=== PATIENT | female | born 1970 | race American Indian/Alaskan Native ===

== ENCOUNTER 2017-12-20 09:34 | Outpatient (CLI) | payer BC ==
--- NOTE | 2017-12-21 12:07 | Magnetic Resonance Report ---
BILATERAL BREAST MRI WITHOUT AND WITH CONTRAST: 12/20/17 09:34:00 CLINICAL: Newly diagnosed DCIS of the left breast. COMPARISON:Recent [facility] mammograms. TECHNIQUE: Axial 1.0-mm T1 without, axial high resolution 2.0-mm T2 and axial 1.0-mm dynamic Vibrant high-resolution postcontrast T1 fat saturation sequences on a 1.5 Sheron magnet. The examination was performed with an 8 channel dedicated [employer] breast coil. Post processing with CAD and subtraction was performed on an [employer] workstation. 15.0 cc of Multihance was injected without incident for the contrast portion of the exam. Consent was obtained prior to the administration of the contrast. FINDINGS: Right: Minimal background parenchymal enhancement. No mass or suspicious enhancement. No suspicious right axillary or right internal mammary lymph nodes. Left: Minimal background parenchyma enhancement. A post stereotactic biopsy hematoma is identified at 6 o'clock approximately 7 cm from the nipple and this correlates with the site of the known cancer. No mass or suspicious enhancement. Mild benign enhancement at the periphery of the hematoma which measures 2.3 x 2.6 x 1.5 cm. No mass or suspicious enhancement of the left breast. No suspicious left axillary or left internal mammary lymph nodes. Several small left axillary lymph nodes with benign morphology. IMPRESSION: 1. Newly diagnosed left breast cancer had a left stereotactic biopsy site. 2. No mass or suspicious enhancement of either breast. 3. No suspicious lymph nodes. RIGHT BI-RADS 1 -- Negative LEFT BI-RADS 6 -- Known Cancer
== END 2017-12-20 09:35 | disposition home or self-care (01) ==
LOC: SPVIMAG 09:34
PROVIDERS: ATTEND Surgery
DX: C50.112 Malignant neoplasm of central portion of left female breast (principal); D64.9 Anemia, unspecified
CPT/HCPCS: A9577; C8908; 77059

== ENCOUNTER 2018-09-14 07:07 | Inpatient (IN) | payer BC ==
--- NOTE | 2018-09-12 10:46 | History and Physical Report ---
History of Present Illness Date of examination: 09/12/18 History of present illness: Patient has been reassessed/reevaluated. H&P has been reviewed. No interval changes. This is a 48 year old black female s/p mastectomy with ductal [id number] postive BRCA-1. Patient's oncologist recommends bilateral oophorectomy. Vital Signs: Patient Profile: 48 Years Old Female Height: 61.75 inches (156.85 cm) Weight: 152 pounds (69.09 kg) BMI: 28.02 BSA: 1.70 Past History : 2 Term Births: 1 Premature Births: 0 Living Children: 1 Para: 1 Mult. Births: 0 Prev : 0 Aborta: 1 Elect. Ab: 1 Spont. Ab: 0 Ectopics: 0 [employer] History Uterine Surgery (not C/S): negative Operations: Essure hernia repair lsc ovarian cystecomy RATH with bilateral salpingectomy (05/20/2016) Mastectomy and reconstruction (01/2018) Abdominal Surgery: abdominoplasty Hospitalizations: negative Anesthesia Complications: negative Abnormal PAP: negative Uterine Anomaly: positive fibroids LYDIA Exposure: negative Infertility: negative Infection History HIV Risk Eval: no Hx of STD: gonorrhea Current Allergies (reviewed today): No known allergies Past Medical History: Breast Cancer Past Surgical History: Essure hernia repair lsc ovarian cystecomy RATH with bilateral salpingectomy (05/20/2016) Mastectomy and reconstruction (01/2018) Abdominal Surgery: abdominoplasty Family History Summary: Lupus Heart dz Family History Breast Cancer-maunt(dx 60s) Social History: no tobacco/drugs/occ etoh Patient is single Risk Factors: Smoked Tobacco Use: Never smoker Smokeless Tobacco Use: Never Passive smoke exposure: no Drug use: no HIV high-risk behavior: no Alcohol use: yes Exercise: no Seatbelt use: 100 % Review of Systems General Complains of fatigue. Denies fever, chills, sweats, anorexia, weakness, malaise, weight loss and sleep disorder. Denies vaginal discharge, incontinence, dysuria, hematuria, urinary frequency, amenorrhea, menorrhagia, abnormal vaginal bleeding, pelvic pain, genital sores, decreased libido, painful periods, painful sex, urinary urgency, hot flashes, vaginal dryness, vaginal itching and vaginal odor. CV Denies chest pains, palpitations, syncope, dyspnea on exertion, orthopnea, PND and peripheral edema. Resp Denies cough, dyspnea at rest, excessive sputum, hemoptysis, wheezing and pleurisy. GI Denies nausea, vomiting, diarrhea, constipation, change in bowel habits, abdominal pain, melena, hematochezia, jaundice, gas/bloating, indigestion/heartburn, dysphagia and odynophagia. Breast Denies left breast lump, right breast lump, nipple discharge, bloody discharge from nipple, breast pain, abnormal mammogram and breast enlargement. Psych Denies depression, anxiety, irritability and mood swings. Past History Past Medical History: other (See HPI) Past Surgical History: Other (See HPI) Social history: single, full code (See HPI), other Family history: cancer, other (See HPI) Medications and Allergies Allergies Allergy/AdvReac Type Severity Reaction Status Date / Time No Known Allergies Allergy Verified 09/04/18 14:35 Home Medications Medication Instructions Recorded Confirmed Last Taken Type Tamoxifen Citrate 20 mg PO DAILY 09/04/18 09/04/18 Unknown History Review of Systems Constitutional: other (See HPI) Exam - Physical Exam Narrative exam: HEENT: normocephalic, no lesions or deformities Skin no ulcers, xanthomas Chest: respiratory effort normal, clear to auscultation CV: regular, normal S1-S2, no murmur, no rub, no gallop Abdomen: Robotic surgical scars present normal bowel sounds, soft, nontender, no HSM abdominoplasty scar Musculoskeletal: grossly normal ROM in joints, no joint tenderness or muscle weakness Neuro: no gross anomalities Extremities: normal alignment, no joint enlargement, crepitus, masses or tenderness; normal tone and strength [employer] Exams Vulva/Vagina: Well healed cuff Cervix: Surgically absent Uterus: Surgically absent Adnexae: no masses or tenderness Rectovaginal: Deferred Results - Labs CBC & Chem 7: 09/12/18 11:05 09/12/18 11:05 Assessment and Plan - Patient Problems (1) Ductal carcinoma in situ (DCIS) of breast Current Visit: No Status: Acute Qualifiers: Laterality: unspecified laterality Qualified Code(s): D05.10 - Intraductal carcinoma in situ of unspecified breast Plan to address problem: Patient's oncologist recommends bilateral oophorectomy. Consent reviewed and signed . The risks and alternatives for this surgery were reviewed with the patient. Discuss the risks of the surgery including infection, bleeding possibly heavy enough to require a blood transfusion, possible damage to bowel, bladder or ureter. Patient understands if her ovaries are removed she will become menopausal. Her questions were answered. Patient understands and desires to proceed . (2) BRCA positive Current Visit: No Status: Acute
[2018-09-12 11:15] LABS: Basophils % (Auto) 0.7 % (0.0-1.8); Eosinophils # (Auto) 0.2 K/mm3 (0.0-0.4); Eosinophils % (Auto) 3.3 % (0.0-4.3); Lymphocytes # (Auto) 1.5 K/mm3 (1.2-5.4); Lymphocytes % (Auto) 32.1 % (13.4-35.0); Mean Corpuscular HGB Conc 33 % (30-34); Mean Corpuscular Volume 94 fl (79-97); Monocytes # (Auto) 0.3 K/mm3 (0.0-0.8); Platelet Count 182 K/mm3 (140-440); Red Blood Count 4.15 M/mm3 (3.65-5.03); Red Cell Distribution Width 13.4 % (13.2-15.2)
--- NOTE | 2018-09-12 11:26 | Anesthesia Day of Surgery ---
Anesthesia Day of Surgery - Day of Surgery Patient Examined: Yes Patient H&P Reviewed: Yes Patient is NPO: Yes Beta Blockers: No Cardiac Clearance: No Pulmonary Clearance: No Kal's Test: N/A
--- NOTE | 2018-09-12 11:29 | Anesthesia Consultation ---
Anesthesia Consult and Med Hx Date of service: 09/12/18 - Airway Anesthetic Teeth Evaluation: Good (has permanent retainer) ROM Head & Neck: Adequate Mental/Hyoid Distance: Adequate Mallampati Class: Class II Intubation Access Assessment: Probably Good - Pulmonary Exam CTA: Yes - Cardiac Exam Cardiac Exam: RRR - Pre-Operative Health Status ASA Pre-Surgery Classification: ASA2 Proposed Anesthetic Plan: General - Pre-Anesthesia Comment Pre-Anesthesia Comments: no IV/BP on Left side (s/p mastectomy in 2018) significant PONV in 2018, will recommend for GA with TIVA - discussed scoplamine patch for prophylaxis but patient does not want (had last time and didn't feel like it worked) - Pulmonary Hx Smoking: No Hx Asthma: No COPD: No Hx Pneumonia: No - Cardiovascular System Hx Hypertension: No Hx Heart Murmur: Yes - Central Nervous System Hx Psychiatric Problems: No - Endocrine Hx End Stage Renal Disease: No - Hematic Hx Anemia: Yes - Other Systems Hx Alcohol Use: Yes (Occas) Hx Substance Use: No Hx Cancer: Yes - Additional Comments Anesthesia Medical History Comments: PONV - may need TIVA; avoid scop patch. No IV/BP on Left
[2018-09-12 11:30] LABS: BUN/Creatinine Ratio 17; Blood Urea Nitrogen 10 mg/dL (7-17); Calcium 9.5 mg/dL (8.4-10.2); Hemolysis Index 22
[~2018-09-14 07:07] MED LIST: LACTATED RINGERS 1,000 ML IV SCH; NEURONTIN PO NR; SUBLIMAZE IV PRN; VERSED IV NR
[2018-09-14] MEDS ORDERED: PHENERGAN PR PRN (07:51)
[2018-09-14] MEDS ORDERED: DILAUDID IV PRN (07:51)
--- NOTE | 2018-09-14 07:51 | Anesthesia Day of Surgery ---
Anesthesia Day of Surgery - Day of Surgery Patient Examined: Yes Patient H&P Reviewed: Yes Patient is NPO: Yes
[2018-09-14] MEDS ORDERED: ANCEF/STERILE WATER 2 GM/20 ML 2 GM/20 ML SYRINGE IV NR (08:00)
[2018-09-14] MEDS ORDERED: TRANSDERM-SCOP TD NR (08:00)
[2018-09-14] MEDS ORDERED: NACL 0.9% IR ONE (10:33)
[2018-09-14] MEDS ORDERED: DIPRIVAN 10 MG/ML IV ONE (10:35)
[2018-09-14] MEDS ORDERED: DILAUDID ONE (10:35)
[2018-09-14] MEDS ORDERED: XYLOCAINE MPF 2% ONE (10:37)
[2018-09-14] MEDS ORDERED: ZEMURON IV ONE (10:37)
[2018-09-14] MEDS ORDERED: DECADRON ONE (11:00)
[2018-09-14] MEDS ORDERED: BLOXIVERZ ONE (11:40)
[2018-09-14] MEDS ORDERED: TORADOL ONE (11:40)
[2018-09-14] MEDS ORDERED: ZOFRAN ONE (11:40)
[2018-09-14] MEDS ORDERED: ROBINUL ONE (11:40)
[2018-09-14] MEDS ORDERED: MARCAINE 0.5% INFILTRATI ONE ×2 (11:48→11:50)
[2018-09-14] MEDS ORDERED: LACTATED RINGERS 1,000 ML ONE (12:09)
--- NOTE | 2018-09-14 12:11 | Operative Report ---
Operative Report Operative Report: Date of procedure: 09/14/2018 Pre-operative diagnosis: Intraductal breast cancer BRCA positive desires bilater al oophorectomy Post-operative diagnosis: Same Procedure name(s): Minilaparotomy with bilateral oophorectomy Surgeon: Lew Mercedes MD Sugar Cane Planter: [] Anesthesia: General EBL: Minimal Complications: None Findings: Patient with troponin appearing right ovary was small ovarian cysts normal. Left ovary Specimen(s): Bilateral ovaries Procedure: Patient was taken to operating room where general anesthesia was induced without difficulty. Patient was placed in the supine position. Prep and drape in usual sterile fashion. A Pfannenstiel incision was made with a scalpel. This incision was taken on the fascia, the fascia was nicked in the midline and this incision was extended laterally with Jenkins scissors. The rectus muscles were from the overlying fascia both bluntly and sharply cephalically and caudally. The rectus muscles were sharply and bluntly. Peritoneum was grasped with 2 hemostats lifted high and incised with Metzenbaum scissors with no evidence of internal organ damage. This incision was extended vertically with care not to damage the bladder below. Patient was placed in Trendelenburg. Through this incision the right ovary was grasped with Elena clamp and was clearly identified. The ureter was identified to be out of operative site A Faviola clamp was placed across the ovarian vessels the specimen was then cut away and ovarian vessels tied with 0 Vicryl. The same procedure performed patient on left ovary. Post vessel stumps were inspected and found to be hemostatic. Packing was then removed. The rectus muscles and peritoneum were then reapproximated with good hemostasis. The skin was closed subcuticularly with 4-0 Vicryl. Patient tolerated procedure and was awakened and accompanied to the recovery room in good condition.
[2018-09-14] MEDS ORDERED: ZOFRAN IV PRN (13:00)
[2018-09-14] MEDS ORDERED: D5LR 1,000 ML IV SCH (13:00)
[2018-09-14] MEDS ORDERED: NORCO 5/325 PO PRN (13:00)
--- NOTE | 2018-09-14 13:59 | Post Anesthesia Evaluation ---
- Post Anesthesia Evaluation Patient Participated: Yes Airway Patent: Yes Stable Respiratory Function: Yes Nausea/Vomiting: No Temp > 96.8F: Yes Pain Manageable: Yes Adequeate Hydration: Yes Anesthesia Complications: No
--- NOTE | 2018-09-14 18:24 | Short Stay Summary ---
Short Stay Documentation Date of service: 09/14/18 - History H&P: dictated Past Medical History: other (See HPI) Past Surgical History: Other (See HPI) Social history: single, full code (See HPI), other - Allergies and Medications Current Medications: Allergies No Known Allergies Allergy (Verified 09/04/18 14:35) Home Medications Medication Instructions Recorded Confirmed Last Taken Type Tamoxifen Citrate 20 mg PO DAILY 09/04/18 09/04/18 Unknown History oxyCODONE /ACETAMINOPHEN [Percocet 1 - 2 tab PO Q4H PRN #20 tablet 09/14/18 Unknown Rx 5/325 mg] Active Medications Acetaminophen/Hydrocodone Bitart ([place] 5/325) 2 each PO Q4H PRN PRN Reason: Pain, Moderate (4-6) Last Admin: 09/14/18 16:22 Dose: 2 each Documented by: Dextrose/Lactated Ringer's ([email or web address]) 1,000 mls @ 125 mls/hr IV DIRECT ERIC Ondansetron HCl (Zofran) 4 mg IV Q8H PRN PRN Reason: Nausea And Vomiting - Brief post op/procedure progress note Date of procedure: 09/14/18 (see dictated operative note) - Hospital course Hospital course: Patient was admitted underwent the above him procedure without any complications. Patient initially failed to void after 7 hr post op. and stright cather reveal 400cc of urine Patient spontaneously voided 300cc and desired to be discharge Patient will be discharged with follow-up in office in 1-2 weeks for postop check. - Disposition Condition at discharge: Good Disposition: DC-01 TO HOME OR SELFCARE - Discharge Diagnoses (1) Ductal carcinoma in situ (DCIS) of breast Status: Acute Qualifiers: Laterality: unspecified laterality Qualified Code(s): D05.10 - Intraductal carcinoma in situ of unspecified breast (2) BRCA positive Status: Acute Short Stay Discharge Plan Activity: advance as tolerated Diet: regular Wound: open to air Follow up with: PRIMARY CARE, [Primary Care Provider] - 7 Days Prescriptions: oxyCODONE /ACETAMINOPHEN [Percocet 5/325 mg] 1 - 2 tab PO Q4H PRN #20 tablet PRN Reason: Pain, Moderate
--- NOTE | 2018-09-14 21:32 | Event Note ---
Date: 09/14/18 Straight catheter done > 6hr post op after patient unable to void obtain 400cc urine. Will place garza overnight and remove in am due to urinary retention.
[2018-09-15 01:50] VITALS: BP 107/60
== END 2018-09-15 02:11 | disposition home or self-care (01) | DRG 743 ==
LOC: 3A 07:07 → OB 12:24
PROVIDERS: ADMIT Obstetrics & Gynecology; ATTEND Obstetrics & Gynecology
PROC: 0UT20ZZ Resection of Bilateral Ovaries, Open Approach (ICD-10-PCS; principal; 2018-09-14)
DX: Z40.02 Encounter for prophylactic removal of ovary(s) (principal); N83.201 Unspecified ovarian cyst, right side; D05.12 Intraductal carcinoma in situ of left breast; Z84.89 Family history of other specified conditions; Z82.49 Family history of ischemic heart disease and other diseases of the circulatory system; Z85.3 Personal history of malignant neoplasm of breast; Z80.3 Family history of malignant neoplasm of breast; Z15.01 Genetic susceptibility to malignant neoplasm of breast; Z90.710 Acquired absence of both cervix and uterus
CPT/HCPCS: 36415; 80048; 85025; 86850; 86900; 86901; 88305; G0378; J0690; J1100; J1170; J1885; J2250; J2405; J2704; J2710; J7120; J7121

== ENCOUNTER 2020-01-16 09:12 | Outpatient (CLI) | payer BC | END 2020-01-16 09:13 | disposition home or self-care (01) | LOC: LABHHL 09:12 | PROVIDERS: ATTEND Surgery | DX: N60.02 Solitary cyst of left breast (principal); Z85.3 Personal history of malignant neoplasm of breast | CPT/HCPCS: 88112 ==